=== PATIENT | female | born 1975 | race Caucasian/White ===

== ENCOUNTER → 2020-04-22 17:48 | Outpatient (CLI) | payer BC, SELFPAY ==
--- NOTE | ~2020-04-22 | MM_ITS ---
EXAMINATION: MM screening issac BI w ariela HISTORY: Screening TECHNIQUE: Craniocaudal and mediolateral oblique 3-D tomosynthesis images were obtained and synthetic 2-D images were generated. CAD analysis was submitted and interpreted. COMPARISON: Comparison to multiple prior studies sequentially, with oldest reviewed study dated 03/14. BREAST PARENCHYMAL COMPOSITION: The breasts are heterogeneously dense, which may obscure small masses . FINDINGS: There is no evidence of suspicious mass, calcification, or architectural distortion to sugg est malignancy in either breast. There has been no suspicious interval change. IMPRESSION: 1. No mammographic evidence of malignancy. 2. Recommend routine screening mammography in one year. BI-RADS Category 1: Negative Reviewed, dictated and finalized at location A. [employer]
== END ==
PROVIDERS: Visit Provider Obstetrics & Gynecology Gynecology
DX: Z12.31 Encounter for screening mammogram for malignant neoplasm of breast (principal)
CPT/HCPCS: 77063; 77067

== ENCOUNTER → 2021-04-23 11:08 | Outpatient (CLI) | payer BC, SELFPAY ==
--- NOTE | ~2021-04-23 | US_ITS ---
EXAMINATION: US transvaginal EXAM DATE: 04/23/2021 11:46 INDICATION: Missing IUD strings. TECHNIQUE: Pelvic transvaginal sonogram was performed. There are multiple grayscale and Doppler imag es available for interpretation. There is no prior study for comparison. FINDINGS: Uterus measures 8.4 x 4.4 x 4.8 cm, with IUD identified, fundal portion appears to be in t he middle of the endometrial stripe. The lower uterine segment portion possibly within the endometriu m or just deep to it. Endometrial stripe is within normal size limits. There is no free pelvic fluid. Right adnexa: The ovary is not identified. There is no adnexal mass. Left adnexa: The ovary measures 4.4 x 4.1 x 4.1 cm and is morphologically normal. Ovarian vascular fl ow confirmed. IMPRESSION: IUD, inferior margin of which is possibly extending into the lower uterine segment endome trium or myometrium just deep to it. Reviewed, dictated and finalized at location A. UNDERWRITER IMPRESSION: IUD, inferior margin of which is possibly extending into the lower uterine segment endometrium or myometrium just deep to it.
== END ==
PROVIDERS: Visit Provider Obstetrics & Gynecology Gynecology
DX: Z30.431 Encounter for routine checking of intrauterine contraceptive device (principal)
CPT/HCPCS: 76830

== ENCOUNTER 2021-05-09 01:49 | Day surgery (SDC) | payer BC, SELFPAY ==
[2021-05-02 13:59] VITALS: BMI 30.7
--- NOTE | 2021-05-02 14:08 | PC.NURSE ---
Report to the Outpatient Waiting Room, entrance under the green pavilion located off [facility], at time 0845 on date 05/09/21. OR Time: 1045. - You and your visitor will be asked a series of questions to screen for COVID 19 for your protection. - A mask is required within the hospital. - Only one visitor is allowed at this time. Patient visitors will be guided where to wait when not with patient. Preoperative COVID Testing Requirements: TO E-MAIL RESULTS FROM TEST 05/06 No COVID Test needed if: (proof is required; if not received patient will have Rapid Test prior to entry) - Patient has received COVID Vaccine at least 14 days prior to procedure date or - Patient has positive COVID test result within last 90 days of surgery date. COVID Test needed if above criteria is not met If not COVID vaccinated a COVID test must be conducted within 72 hours of surgery and patient is asked to isolate self from time of testing until procedure. You will go to the [facility] for your COVID testing. The [facility] is located at the corner of [address] [facility]. You will only be called if COVID results are positive and your surgeon may reschedule your elective surgery date. Patients may have clear liquids (water, carbonated beverages, clear teas, apple juice) until 3 hours prior to surgery with a maximum of 20 ounces. - No food from midnight until time of surgery - Infants may have breast milk until 4 hours before surgery, formula 6 hours prior to surgery. - Children will be allowed to drink immediately following surgery. If applicable, please bring a bottle or sippy cup to assist with drinking. Juice, water, soda, and popsicles are readily available. For infants on formula, please bring formula the day of surgery. Pacifiers are allowed. Take the following medications with a SIP of water the morning of surgery: NONE Medications to discontinue per physician: VITAMINS/SUPPLEMENTS Date to take last dose: 05/05/21 Please no make-up, nail emirati, hairspray, perfume, deodorant, or body powder the day of surgery. No jewelry (including any body piercings) or valuables the day of surgery, leave them at home. Please take a shower or bath the night before, or the morning of, surgery with an antibacterial soap. Wear comfortable, loose fitting clothing. Children are encouraged to wear pajamas. - Jewelry must be removed prior to entering the operating room. Rings and piercings that are not removed may be cut off. - The hospital will not accept responsibility for valuables. - Please leave all valuables, including medications, at home the day of surgery. If you are going home after surgery, a licensed refrigerated national truck driver must drive you home. - NO public transportation without another adult. - We recommend that an adult stay with you for 24 hours following discharge. - We also recommend that you do not drive, make important decision, drink alcoholic beverages, or take any drugs that were not prescribed by your health care provider for at least 24 hours after your discharge time. For Pediatric surgeries, we recommend two adults accompany the child home (only one inside the building at this time). Follow any additional instructions given to you from your surgeon. Telephone instructions given to DAYO RODRIGUES and asked if any additional questions and then verbalized understanding. Patient advised to call surgeon office or pre surgery nurse liaison [phone] if any additional questions.
--- NOTE | 2021-05-09 07:33 | P.HP_ITS ---
History of Present Illness History of Present Illness Consent: Risks, benefits, and alternatives have been discussed and questions answered. Patient agrees to proceed with procedure. Chief complaint: Malposition IUD Narrative: Barbi Rossi is a 45 year old female with missing IUD strings. Ultrasound shows the IUD to be in position however within the myometrium. Recommend removal in the operating room with hysteroscopy. Risks of infection, bleeding, perforation, and IUD complications were reviewed. Patient voiced understanding and agrees to proceed. Review of Systems Constitutional: Constitutional: Reports headache(s) Genitourinary: Genitourinary: Reports urinary incontinence [facility] Past Medical History Medical History (Updated 05/09/21 @ 07:39 by Carly Chavira MD) Anxiety Depression IBS (irritable bowel syndrome) Sleep apnea Surgical History Surgical History (Updated 05/09/21 @ 07:38 by Carly Chavira MD) History of bilateral tubal ligation History of x 2 Social History Social History Smoking status: Never smoker Alcohol intake: current Drinks per week: 2 Substance use: never Substance use type: does not use Living arrangements: with family Additional living arrangements comments: CHILDREN Spiritual care concerns: No Meds Home Medications and Allergies Home Medications Medication Instructions Recorded Confirmed Type cholecalciferol (vitamin D3) 50 mcg PO DAILY 05/02/21 05/02/21 History [Vitamin D3] hacuddaznhng-Um-rbus-minerals 1 tablet PO DAILY 05/02/21 05/02/21 History [Women's One Daily] Allergies Allergy/AdvReac Type Severity Reaction Status Date / Time No Known Allergies Allergy Mild Unverified 05/02/21 13:57 Exam Const: General: healthy appearing and alert Orientation/consciousness: patient oriented x3 Resp: Effort & Inspection: normal respiratory effort Auscultation: clear to auscultation bilaterally Cardio: Rate: regular rate Rhythm: regular rhythm GI: GI Palp: Yes Soft to palpation, No Tenderness to palpation present (GI) and No Palpable mass present : External Female Exam: normal external appearance Speculum Exam - Vagina: normal appearance of the vagina and normal vaginal discharge Speculum Exam - Cervix: normal appearance of the cervix Bimanual exam- vagina & uterus: uterine size normal and consistency normal Bimanual Exam- Adnexa, other: normal adnexae and No adnexal tenderness Neuro: General: patient oriented x3 Assessment and Plan Assessment and plan (1) Malpositioned IUD: Code(s): T83.32XA - Displacement of intrauterine contraceptive device, initial encounter Status: Inactive Assessment and Plan: Plan hysteroscopic removal of IUD
--- NOTE | 2021-05-09 07:33 | WPDHPUPDATE1 ---
History and Physical Update Update Date/Time: 05/09/21 07:33 History and Physical has been reviewed, including an updated exam of the patient. There are NO changes in the patient's condition. Risks, benefits, and alternatives have been discussed and questions answered. Patient agrees to proceed with procedure.
[2021-05-09] MEDS: ACETAMINOPHEN 500 MG TABLET 1000 MG PO (09:52)
--- NOTE | 2021-05-09 09:58 | WPDANESEPPF ---
Anes - Initial Pre Proc Eval Procedure: Operation Date: 05/09/21 10:45 Proposed Procedures p Hysteroscopy with Removal Intrauterine Device - Carly Chavira MD Date/Time: 05/09/21 09:58 Surgeon: Carly Chavira MD Pre Op Diagnosis: Malposition IUD Patient Data Age: 45 Gender: F Height: 1.51 m Weight: 70.31 kg Allergies Allergy/AdvReac Type Severity Reaction Status Date / Time No Known Allergies Allergy Mild Unverified 05/02/21 13:57 Home Medications Medication Instructions Recorded Confirmed Type cholecalciferol (vitamin D3) 50 mcg PO DAILY 05/02/21 05/02/21 History [Vitamin D3] wtpklrafftda-Gy-zrbs-minerals 1 tablet PO DAILY 05/02/21 05/02/21 History [Women's One Daily] Patient hx anesthesia problems: none Family hx anesthesia problems: none Results Review: All pre-operative results and documents have been reviewed as part of the pre-operative evaluation. [facility] Past Medical History Medical History Anxiety Depression IBS (irritable bowel syndrome) Sleep apnea Surgical History Surgical History History of bilateral tubal ligation History of x 2 Social History Social History Smoking status: Never smoker Alcohol intake: current Drinks per week: 2 Substance use: never Substance use type: does not use Living arrangements: with family Additional living arrangements comments: CHILDREN Spiritual care concerns: No Anes - Eval Final PreProcedure Day of Procedure 05/09/21 09:58 Patient weight: obese Heart: regular rate and rhythm Lungs: clear to auscultation Airway: Mallampati scale class II Neurological: alert and oriented Last oral intake: >/= 8 hours ASA classification: II Emergent: no Anesthetic plan: proceed Anesthesia type and monitoring: general GIVS and standard monitoring Results Review: All pre-operative results and documents have been reviewed as part of the pre-operative evaluation. Informed Consent: The patient's anesthetic plan and its attendant risks and benefits were discussed with the patient/family/POA. Questions were solicited and answers provided to the satisfaction of the patient/family/POA.
[2021-05-09] MEDS: LACTATED RINGERS 1,000 ML 30 ML IV CONT (10:01)
[2021-05-09 10:02] VITALS: BP 123/65; PULSE 65; TEMP 37.3; O2SAT 99
[2021-05-09] MEDS: KETOROLAC 30 MG/ML VIAL (*BKC) IV PUSH (10:34)
--- NOTE | 2021-05-09 10:39 | P.OP_ITS ---
Procedure Note - Detailed Date of Procedure 05/09/21 Pre-op Diagnosis Malposition IUD Post-op Diagnosis same Procedure Performed Cervical dilatation and hysteroscopy Surgeon Carly Chavira MD Anesthesia MAC and local Findings Nulliparous cervix without IUD strings visible. Retroverted uterus. Normal-soo earing endocervix Description of Procedure The patient was taken to the operating room and placed under anesthesia in the dorsal lithotomy position. She was prepped and draped in usual sterile fashion. [place] speculum was placed in the vagina and the cervix grasped on the anterior lip with a tenaculum. The cervix is injected in each quadrant with lidocaine. The cervix is serially dilated with [place]gar to an 8. The uterus is sounded to an 8cm and noted to be retroverted. The hysteroscope is placed and there was poor visualization hysteroscope was removed and cleaned and a very large approximately 2cm clump of mucus is discharged from the cervix. This mucus is grasped with a ring forcep and removed and discarded. The IUD strings are then visible approximately 2cm out of the cervix. The strings are grasped and the IUD removed intact. The case was stopped and the hysteroscope not used any further. All instruments are removed and the patient was awakened from anesthesia and taken to recovery in stable condition. Estimated Blood Loss 5 Drains No Packing No Pathology none sent (IUD is discarded) Complications No immediate complications Condition stable Disposition PACU
[2021-05-09 10:44] VITALS: BP 95/59; PULSE 72; RESP 16; O2SAT 99
[2021-05-09 11:10] VITALS: BP 103/66; PULSE 55; RESP 16; O2SAT 99
[2021-05-09 11:40] VITALS: BP 111/65; PULSE 48; RESP 16
[2021-05-09 12:01] VITALS: BP 109/69; PULSE 49; RESP 16
== END 2021-05-09 12:23 | disposition home or self-care (01) ==
PROVIDERS: Visit Provider Obstetrics & Gynecology Gynecology
PROC: 0U5B8ZZ Destruction of Endometrium, Via Natural or Artificial Opening Endoscopic (ICD-10-PCS; CPT 58563; principal; 2021-05-09 10:45)
DX: T83.32XA Displacement of intrauterine contraceptive device, initial encounter (principal); Y84.8 Other medical procedures as the cause of abnormal reaction of the patient, or of later complication, without mention of misadventure at the time of the procedure; G47.30 Sleep apnea, unspecified; E66.9 Obesity, unspecified; Z68.31 Body mass index [BMI] 31.0-31.9, adult
CPT/HCPCS: 58562; A9270; J1885; J2250; J2704; J3010; J7030; J7120

== ENCOUNTER → 2021-05-27 00:46 | Outpatient (CLI) | payer BC, SELFPAY ==
[2021-05-28 18:18] LABS: SARS-CoV-2 RNA PCR Negative
== END ==
PROVIDERS: Visit Provider Internal Medicine Gastroenterology
DX: Z01.812 Encounter for preprocedural laboratory examination (principal); Z20.822 Contact with and (suspected) exposure to COVID-19
CPT/HCPCS: C9803; U0003; U0005

== ENCOUNTER 2021-05-30 00:14 | Day surgery (SDC) | payer BC, SELFPAY ==
[2021-05-12 13:32] VITALS: BMI 31.1
--- NOTE | 2021-05-29 19:43 | PM.HPGS ---
History of Present Illness History of Present Illness Consent: Risks, benefits, and alternatives have been discussed and questions answered. Patient agrees to proceed with procedure. Chief complaint: neoplasm screening Narrative: Barbi Rossi is a 45 year old female referred for colon cancer screening Review of Systems Review of Systems: All systems reviewed & are unremarkable except as noted in HPI and below PMFSH Past Medical History Medical History Anxiety Depression IBS (irritable bowel syndrome) Sleep apnea Surgical History Surgical History History of bilateral tubal ligation History of x 2 Social History Social History Smoking status: Never smoker Alcohol intake: current Drinks per week: 2 Alcohol use details: socially Substance use: never Substance use type: does not use Living arrangements: with family Additional living arrangements comments: CHILDREN Spiritual care concerns: No Meds Home Medications and Allergies Home Medications Medication Instructions Recorded Confirmed Type cholecalciferol (vitamin D3) 50 mcg PO DAILY 05/02/21 05/30/21 History [Vitamin D3] oxkvvjpphcwu-Lw-sqga-minerals 1 tablet PO DAILY 05/02/21 05/30/21 History [Women's One Daily] norethindrone ac-eth estradiol 1 tablet PO DAILY 05/12/21 05/30/21 History Allergies Allergy/AdvReac Type Severity Reaction Status Date / Time No Known Allergies Allergy Mild Verified 05/30/21 11:45 Exam Resp: Auscultation: clear to auscultation bilaterally Cardio: Rate: regular rate Rhythm: regular rhythm GI: GI Palp: Yes Soft to palpation and No Tenderness to palpation present (GI) Assessment and Plan Assessment and plan (1) Colon cancer screening: Code(s): Z12.11 - Encounter for screening for malignant neoplasm of colon Status: Acute Assessment and Plan: Colonoscopy with possible biopsy or polypectomy or cautery or injection of substances.
[2021-05-30 11:46] VITALS: BP 116/74; PULSE 106; RESP 16; TEMP 37.4; O2SAT 100; BMI 31.8
--- NOTE | 2021-05-30 11:52 | P.PNAN_ITS ---
Anes - Initial Pre Proc Eval Procedure: Operation Date: 05/30/21 13:00 Proposed Procedures p Screening Colonoscopy - Isaac Crowley MD Date/Time: 05/30/21 11:52 Surgeon: Isaac Crowley MD Pre Op Diagnosis: neoplasm screening Patient Data Age: 45 Gender: F Height: 1.5 m Weight: 71.4 kg Last Vital Signs Temp 37.4 C 05/30/21 11:46 Pulse 106 H 05/30/21 11:46 Resp 16 05/30/21 11:46 BP 116/74 05/30/21 11:46 Pulse Ox 100 05/30/21 11:46 Allergies Allergy/AdvReac Type Severity Reaction Status Date / Time No Known Allergies Allergy Mild Verified 05/30/21 11:45 Home Medications Medication Instructions Recorded Confirmed Type cholecalciferol (vitamin D3) 50 mcg PO DAILY 05/02/21 05/30/21 History [Vitamin D3] uouzrdghvxod-Wd-jrzh-minerals 1 tablet PO DAILY 05/02/21 05/30/21 History [Women's One Daily] norethindrone ac-eth estradiol 1 tablet PO DAILY 05/12/21 05/30/21 History Patient hx anesthesia problems: none Family hx anesthesia problems: none Results Review: All pre-operative results and documents have been reviewed as part of the pre-operative evaluation. [facility] Past Medical History Medical History Anxiety Depression IBS (irritable bowel syndrome) Sleep apnea Surgical History Surgical History History of bilateral tubal ligation History of x 2 Social History Social History Smoking status: Never smoker Alcohol intake: current Drinks per week: 2 Alcohol use details: socially Substance use: never Substance use type: does not use Living arrangements: with family Additional living arrangements comments: CHILDREN Spiritual care concerns: No Anes - Eval Final PreProcedure Day of Procedure 05/30/21 11:52 Patient weight: obese Heart: regular rate and rhythm Lungs: clear to auscultation Airway: Mallampati scale class II Neurological: alert and oriented Last oral intake: >/= 8 hours ASA classification: II Emergent: no Anesthetic plan: proceed Anesthesia type and monitoring: general GIVS and standard monitoring Results Review: All pre-operative results and documents have been reviewed as part of the pre-operative evaluation. Informed Consent: The patient's anesthetic plan and its attendant risks and benefits were discussed with the patient/family/POA. Questions were solicited and answers provided to the satisfaction of the patient/family/POA.
[2021-05-30] MEDS: LACTATED RINGERS 1,000 ML 150 ML IV CONT (12:02)
[2021-05-30 12:59] VITALS: BP 93/57; PULSE 84; RESP 20; O2SAT 96
[2021-05-30 13:09] VITALS: BP 97/60; PULSE 82; RESP 20; O2SAT 99
[2021-05-30 13:19] VITALS: BP 103/62; PULSE 88; RESP 20; O2SAT 99
== END 2021-05-30 13:30 | disposition home or self-care (01) ==
PROVIDERS: Visit Provider Internal Medicine Gastroenterology
PROC: 0DJD8ZZ Inspection of Lower Intestinal Tract, Via Natural or Artificial Opening Endoscopic (ICD-10-PCS; CPT 45378; principal; 2021-05-30 13:00)
DX: Z12.11 Encounter for screening for malignant neoplasm of colon (principal); F41.8 Other specified anxiety disorders; K58.9 Irritable bowel syndrome, unspecified; G47.30 Sleep apnea, unspecified; E66.9 Obesity, unspecified; Z68.31 Body mass index [BMI] 31.0-31.9, adult
CPT/HCPCS: 45378; J2704; J7120

== ENCOUNTER → 2021-08-01 12:30 | Outpatient (CLI) | payer BC, SELFPAY ==
--- NOTE | ~2021-08-01 | MM_ITS ---
EXAMINATION: MM screening issac BI w ariela HISTORY: Screening mammogram TECHNIQUE: Craniocaudal and mediolateral oblique 3-D tomosynthesis images were obtained and synthetic 2-D images were generated. CAD analysis was submitted and interpreted. COMPARISON: 04/22/2020, 05/28/2018, 05/01/2017 bilateral screening mammogram examinations BREAST PARENCHYMAL COMPOSITION: The breasts are heterogeneously dense, which may obscure small masses . FINDINGS: There is no evidence of suspicious mass, calcification, or architectural distortion to sugg est malignancy in either breast. There has been no suspicious interval change. IMPRESSION: 1. No mammographic evidence of malignancy. 2. Recommend routine screening mammography in one year. BI-RADS Category 1: Negative Reviewed, dictated and finalized at location A.
== END ==
PROVIDERS: Visit Provider Obstetrics & Gynecology Gynecology
DX: Z12.31 Encounter for screening mammogram for malignant neoplasm of breast (principal)
CPT/HCPCS: 77063; 77067

== ENCOUNTER → 2022-08-02 13:07 | Outpatient (CLI) | payer BC, SELFPAY ==
--- NOTE | ~2022-08-02 | MM_ITS ---
EXAMINATION: MM screening issac BI w ariela HISTORY: Screening TECHNIQUE: Craniocaudal and mediolateral oblique 3-D tomosynthesis images were obtained and synthetic 2-D images were generated. CAD analysis was submitted and interpreted. COMPARISON: Comparison to multiple prior studies sequentially, with oldest reviewed study dated 03/14. BREAST PARENCHYMAL COMPOSITION: The breasts are heterogeneously dense, which may obscure small masses . FINDINGS: There is no evidence of suspicious mass, calcification, or architectural distortion to sugg est malignancy in either breast. There has been no suspicious interval change. IMPRESSION: 1. No mammographic evidence of malignancy. 2. Recommend routine screening mammography in one year. BI-RADS Category 1: Negative Reviewed, dictated and finalized at location A.
== END ==
PROVIDERS: PCP Obstetrics & Gynecology Gynecology; Visit Provider Obstetrics & Gynecology Gynecology
DX: Z12.31 Encounter for screening mammogram for malignant neoplasm of breast (principal)
CPT/HCPCS: 77063; 77067

== ENCOUNTER 2023-08-18 11:03 | Outpatient (CLI) | payer BC, SELFPAY ==
--- NOTE | ~2023-08-18 | MM_ITS ---
EXAMINATION: MM screening issac BI w ariela HISTORY: Screening mammogram TECHNIQUE: Craniocaudal and mediolateral oblique 3-D tomosynthesis images were obtained and synthetic 2-D images were generated. CAD analysis was submitted and interpreted. COMPARISON: 08/02/2022, 08/01/2021 bilateral screening mammogram examinations BREAST PARENCHYMAL COMPOSITION: The breasts are heterogeneously dense, which may obscure small masses . FINDINGS: There is no evidence of suspicious mass, calcification, or architectural distortion to sugg est malignancy in either breast. There has been no suspicious interval change. IMPRESSION: 1. No mammographic evidence of malignancy. 2. Recommend routine screening mammography in one year. BI-RADS Category 1: Negative Reviewed, dictated and finalized at location A.
== END 2023-08-18 11:04 ==
LOC: MICIMG 11:04
PROVIDERS: PCP Obstetrics & Gynecology Gynecology; Visit Provider Obstetrics & Gynecology Gynecology
DX: Z12.31 Encounter for screening mammogram for malignant neoplasm of breast (principal)
CPT/HCPCS: 77063; 77067